=== PATIENT | male | born 1955 | race Caucasian/White ===

== ENCOUNTER 2024-05-29 11:13 | Outpatient (CLI) | payer MEDICARE, MEDICAID, SELFPAY ==
[2024-05-25 13:39] VITALS: BMI 26.7
[2024-05-29] VITALS (14 sets, daily range): BP systolic 100–175; BP diastolic 49–94; PULSE 62–789; RESP 13–22; TEMP 36.1–36.8; O2SAT 92–100
--- NOTE | 2024-05-29 13:00 | XR_ITS ---
Examination: MRI lumbar spine without contrast Date and time of exam: May 29, 2024 1341 hours INDICATIONS: Low back pain radiating down the legs 5 years Technique: Multiple MRI axial and sagittal sections lumbar spine. Sagittal T2-weighted images, TR 3500, TE 118 T1 weighted transverse sections, TR 688 T8.5, T2-weighted sagittal sections T1 weighted sagittal sections TR 621, TE 30 T2 axial sections, TR 4, 190, TE 84. Findings: Adequate alignment lumbar vertebral bodies on the lateral view No lumbar fracture Advanced disc narrowing T12-L1 L2-L3 No spondylolisthesis L5-S1 no disc protrusion L4-L5 2 mm central lumbar disc bulge L3-L4 no disc protrusion L2-L3 5 mm left foraminal disc bulge but without ganglionic compression L2-L3 no disc protrusion IMPRESSION: Advanced degenerative disc disease T12-L1, L2-L3 L2-L3 5 mm left foraminal disc bulges but no ganglionic compression
[2024-05-29] MEDS: SODIUM CHLORIDE 0.9% 100 ML 40 ML IV (13:31)
[2024-05-29] MEDS: fentaNYL CIT INJ 50 mCg/ML AMP 2ML 100 MCG IVP (13:31)
[2024-05-29] MEDS: MIDAZOLAM INJ 1 MG/ML VIAL 2 ML 3 MG IV (13:31)
--- NOTE | 2024-05-29 15:09 | PC.NURSE ---
1416 patient is awake, alert, disoriented to place and time, mentally disabled. s/p MRI L spine with sedation. 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
--- NOTE | 2024-05-29 15:26 | PC.NURSE ---
1526 patient is awake, alert, breathing unlabored, s/p MRI with sedation, tolerated water and pudding with no nausea or vomiting, meets discharge criteria, discharge instructions given to patient and caregiver Meloniey, patient discharged home in wheelchair with all belongings.
== END 2024-05-29 15:26 | disposition home or self-care (01) ==
PROVIDERS: PCP Physician Assistant; Referring Provider Physician Assistant; Visit Provider Physician Assistant
DX: M51.35 Other intervertebral disc degeneration, thoracolumbar region (principal); M51.369 Other intervertebral disc degeneration, lumbar region without mention of lumbar back pain or lower extremity pain
CPT/HCPCS: 72148; 99152; 99153; J2250; J3010; J7050

== ENCOUNTER → 2024-12-11 | Outpatient (CLI) | payer MEDICARE, MEDICAID, SELFPAY ==
--- NOTE | 2024-12-11 11:30 | XR_ITS ---
Examination: CT chest, without intravenous contrast. Sagittal and coronal 2-D reconstructions. Exam date and time: December 11, 2024 1240 hours INDICATIONS: CT chest June 10, 2023 11 mm nodule in the lingular segment CTDI:vol (mGy) 9.20 DLP: (mGycm) 317 Technique: Multiple 3.0 mm axial sections of the chest to been obtained. Bone and lung density settings are obtained. Sagittal and coronal 2-D reconstructions have been obtained. Low dose protocols were performed. One or more of the following dose reduction techniques were used; automated exposure control, adjustment of the mA and/or KV according to patient size, use of iterative reconstruction technique. Findings: No thoracic aortic aneurysm dilatation Pulmonary artery segments are not enlarged No paratracheal tracheobronchial or bronchopulmonary adenopathy Stable 11 mm nodule in the lingular segment No new pulmonary nodules No pneumonia or pulmonary edema Small pericardial effusion Gallstones No pancreatic mass IMPRESSION: Stable 11 mm nodule in the lingular segment left upper lobe No new pulmonary nodules
== END | disposition home or self-care (01) ==
PROVIDERS: PCP Physician Assistant; Referring Provider Physician Assistant; Visit Provider Physician Assistant
DX: R91.1 Solitary pulmonary nodule (principal)
CPT/HCPCS: 71250

== ENCOUNTER → 2025-02-27 | Outpatient (BNVA) | payer MEDICARE, MEDICAID, SELFPAY | END | disposition home or self-care (01) | PROVIDERS: PCP Physician Assistant; Referring Provider Physician Assistant; Visit Provider Urology | DX: N40.1 Benign prostatic hyperplasia with lower urinary tract symptoms (principal); N13.8 Other obstructive and reflux uropathy; L72.3 Sebaceous cyst; I10 Essential (primary) hypertension | CPT/HCPCS: 99212; G0463 ==

== ENCOUNTER → 2025-04-20 | Outpatient (CLI) | payer MEDICARE, MEDICAID, SELFPAY ==
--- NOTE | 2025-04-20 11:00 | XR_ITS ---
EXAMINATION: Testicular sonography complete TECHNIQUE: Grayscale sonographic images testes assessment arterial inflow and venous outflow Doppler spectral analysis color flow analysis Date and time: April 20, 2025, 1055 hours INDICATIONS: Bilateral testicular pain beginning 3 days ago. FINDINGS: Right testis 5.6 cm epididymis 13 mm 4 mm epididymal cyst Arterial flow the testicle. No testicular mass Moderate varicocele Left testis 5.2 cm epididymis 12 mm 2 scrotal calcifications, the largest 9 mm Arterial flow testicle. No testicular mass Mass in the scrotal wall 13 x 6 x 11 mm, clinical correlation advised IMPRESSION: No testicular torsion or testicular mass Moderate right varicocele Mass in the left scrotal wall, 13 x 6 x 11 mm, clinical correlation advised
== END | disposition home or self-care (01) ==
PROVIDERS: PCP Urology; Referring Provider Urology; Visit Provider Urology
DX: I86.1 Scrotal varices (principal); R19.09 Other intra-abdominal and pelvic swelling, mass and lump
CPT/HCPCS: 76870

== ENCOUNTER → 2025-06-05 | Outpatient (BNVA) | payer MEDICARE, MEDICAID, SELFPAY | END | disposition home or self-care (01) | PROVIDERS: PCP Physician Assistant; Referring Provider Physician Assistant; Visit Provider Physician Assistant | DX: N40.1 Benign prostatic hyperplasia with lower urinary tract symptoms (principal); I10 Essential (primary) hypertension | CPT/HCPCS: Q3014 ==